=== PATIENT | female | born 1965 | race Caucasian/White ===

== ENCOUNTER 2016-07-04 06:26 | Day surgery (SDC) | payer BC ==
[2016-06-29 16:37] LABS: HEMATOCRIT 40.3 % (36.0-48.0); HEMOGLOBIN 13.7 g/dL (12.0-16.0)
[2016-06-29 16:58] LABS: CALCIUM, SERUM 8.8 MG/DL (8.5-10.4); CHLORIDE, SERUM 107 MMOL/L (96-112); CO2 (CARBON DIOXIDE) 27 MMOL/L (24-34); CREATININE 0.69 MG/DL (0.55-1.02); GFR AFRICAN AMERICAN 119 ML/MIN (>=60); GFR NON AFRICAN AMERICAN 103 ML/MIN (>=60); GLUCOSE, SERUM 90 MG/DL (60-99); POTASSIUM, SERUM 3.9 MMOL/L (3.5-5.3); SODIUM, SERUM 142 MMOL/L (135-148)
[2016-06-29 17:01] LABS: BUN (BLOOD UREA NITROGEN) 16 MG/DL (6-23)
--- NOTE | ~2016-07-04 | OP ---
[facility] [place] [address] [place]. [address] NAME: DARIUS YOST MONE : 69 STATUS : REG [facility] PAT#: [id number] AGE: 50 ADM/REG DATE : 07/04/16 MR#: [id number] REPORT SERV DATE: 07/04/16 DICTATED BY: MICHAEL REBOLLEDO DATE: 07/04/16 REPORT STATUS : Draft TRANSCRIBED BY: MODL DATE: 07/04/16 DATE OF PROCEDURE: 07/04/2016 PREOPERATIVE DIAGNOSES: 1. Septal deviation. 2. Bilateral turbinate hypertrophy. 3. Chronic nasal obstruction. POSTOPERATIVE DIAGNOSES: 1. Septal deviation. 2. Bilateral turbinate hypertrophy. 3. Chronic nasal obstruction. PROCEDURES: 1. Septoplasty. 2. Bilateral inferior turbinoplasty. SURGEON: Michael Rebolledo M.D. ANESTHESIA: General. COMPLICATIONS: None. COUNTS: All counts were correct following the procedure. ESTIMATED BLOOD LOSS: 20 mL. PREOPERATIVE INFORMED CONSENT: We discussed the risks and benefits of the surgery including, but not limited to bleeding, infection, possible CSF leak, possible saddle nose deformity, possible septal perforation, possible persistent nasal obstruction despite surgery, and possible need for revision surgery, possible ocular injury including blindness, possible persistent sinus disease despite surgery. Consent is on the chart. OPERATIVE FINDINGS: The patient noted to have a high superior septal deviation to the left and right inferior septal deviation to the right. DESCRIPTION OF PROCEDURE: The patient was brought to the operating suite and placed on the operating table in the supine position. General endotracheal anesthesia was initiated without incident. The patient's head and neck were cleaned, prepped and draped in the usual sterile fashion. Following this, both sides of the septum and inferior turbinates were injected with 1% Lidocaine with 1:100,000 epinephrine for hemostasis. Approximately 12.0 mL. were used. Following this, a #15 blade scalpel was used to performed a left hemitransfixion incision down to the underlying septal cartilage. A mucoperichondrial flap was raised along the left side of the nasal septum using [place] and Greg elevators. The bony cartilaginous Record Of [place] [address] [place]. [address] NAME: DARIUS YOST MONE : 69 STATUS : REG [facility] PAT#: [id number] AGE: 50 ADM/REG DATE : 07/04/16 MR#: [id number] REPORT SERV DATE: 07/04/16 DICTATED BY: MICHAEL REBOLLEDO DATE: 07/04/16 REPORT STATUS : Draft TRANSCRIBED BY: ELVIS DATE: 07/04/16 junction was using the Greg elevator and then the mucoperiosteum was raised off both sides of the bony nasal septum. A thin strip of the cartilaginous septum along the maxillary crest was removed using a #15 blade scalpel and a Greg elevator, allowing the cartilaginous septum to swing back in the midline. The maxillary crest was exposed using the Wall elevator and removed using the 6.0 mm straight osteotome. The deviated bony nasal septum was taken down using open Layton-Xuan forceps, as well as Lorraine forceps. Once the septal deviation had been corrected, the left hemitransfixion incision was closed using interrupted 4-0 chromic suture. The Xomed turbinate shaver was then used to perform submucous resection of both inferior turbinates without difficulty and both inferior turbinates were infractured and both the medial and lateral surfaces were cauterized using the Harmonic scalpel. Both inferior turbinates were then outfractured. Breathe-Easy septal splints were then placed on either side of the nasal septum and sutured in the midline using 2-0 nylon suture. The nasopharynx was suctioned free of any blood clots. The patient was awakened from anesthesia and taken to the recovery room in stable condition. JOE/ELVIS Michael Rebolledo M.D. / [id number] CC: Tsering Shaver M.D.
[~2016-07-04 06:26] MED LIST: B COMPLETE PO; CALTRA600D PO; CYTO5 PO; KLOR-CON M1010 MEQ PO; LEVOTHYROXIN100 MCG PO; MULTIPLE VIT PO; OTC IRON PO
== END 2016-07-04 15:16 | disposition home or self-care (01) ==
LOC: SDC 06:26
PROVIDERS: Otolaryngology
PROC: 09Q Ear, Nose, Sinus, Repair (ICD-10-PCS; 2016-07-04)
PROC: 09SM0ZZ Reposition Nasal Septum, Open Approach (ICD-10-PCS; principal; 2016-07-04 08:00)
DX: J34.2 Deviated nasal septum (principal); J34.3 Hypertrophy of nasal turbinates; E03.9 Hypothyroidism, unspecified; J34.89 Other specified disorders of nose and nasal sinuses; Z95.0 Presence of cardiac pacemaker; Z88.8 Allergy status to other drugs, medicaments and biological substances; Z79.899 Other long term (current) drug therapy; Z91.040 Latex allergy status
CPT/HCPCS: 80048; 82962; 84703; 85014; 85018; 88300; 93005; J0690; J2250; J2405; J2710; J3010